=== PATIENT | male | born 1995 | race Two or more races ===

== ENCOUNTER 2017-03-07 14:51 | Emergency (ER) | payer BC ==
[2017-03-07] MEDS ORDERED: methylPREDNISolone Sodium Succinate 125 MG/2 ML SDV IM ONE (14:59)
[2017-03-07] MEDS ORDERED: Albuterol/Ipratropium 3.0-0.5 MG/3 ML Neb Soln NEB ONE (14:59)
--- NOTE | 2017-03-07 15:00 | EDM.PDOC ---
ED HPI GENERAL MEDICAL PROBLEM - General Chief Complaint: Respiratory Problem Stated Complaint: [id number] ASTHMA Time Seen by Provider: 03/07/17 14:59 Source of Information: Reports: Patient History Limitations: Reports: No Limitations - History of Present Illness INITIAL COMMENTS - FREE TEXT/NARRATIVE: 21 yo Male c/o SOB w/ Wheezing X 30mins when moving furniture Onset: Today Onset Date: 03/07/17 Onset Time: 14:00 Duration: Minutes: Location: Reports: Chest Quality: Reports: Same as Previous Episode Severity: Moderate Improves with: Reports: None Worsens with: Reports: None Context: Reports: Activity - Related Data Allergies Allergy/AdvReac Type Severity Reaction Status Date / Time basil Allergy Hives Verified 09/09/16 21:19 mushroom Allergy Hives Verified 09/09/16 21:19 peanuts Allergy Anaphylactic Uncoded 09/09/16 21:18 Shock Home Meds: Home Meds Albuterol Sulfate [Proair Hfa] 8.5 gm IH DAILY 09/03/16 [History] Albuterol Sulfate [Proair Hfa] 2 puff IH Q6HR #1 hfa.aer.ad 11/18/16 [Rx] Inhaler, Assist Devices [Space Chamber Plus] 1 each MC ASDIRECTED #1 spacer 11/27 [Rx] methylPREDNISolone [Medrol] 4 mg PO DAILY #21 tab.ds.pk 11/18/16 [Rx] ALPRAZolam [ALPRAZolam] 2 mg PO ASDIRECTED 03/07/17 [History] Beclomethasone Dipropionate [Qvar] 1 inh INH DAILY 03/07/17 [History] Sertraline HCl [Sertraline HCl] 50 mg PO DAILY 03/07/17 [History] Past Medical History HEENT History: Reports: None Cardiovascular History: Reports: None Respiratory History: Reports: Asthma Gastrointestinal History: Reports: None Genitourinary History: Reports: None Musculoskeletal History: Reports: None Neurological History: Reports: None Psychiatric History: Reports: Anxiety Endocrine/Metabolic History: Reports: None Hematologic History: Reports: None Immunologic History: Reports: None Oncologic (Cancer) History: Reports: None Dermatologic History: Reports: None - Infectious Disease History Infectious Disease History: Reports: None - Past Surgical History Musculoskeletal Surgical History: Reports: Shoulder Surgery Social & Family History - Family History Family Medical History: Noncontributory - Tobacco Use Smoking Status *Q: Never Smoker Used Tobacco, but Quit: No Second Hand Smoke Exposure: No - Caffeine Use Caffeine Use: Reports: None - Recreational Drug Use Recreational Drug Use: No ED ROS GENERAL - Review of Systems Review Of Systems: See Below Constitutional: Reports: No Symptoms HEENT: Reports: No Symptoms Respiratory: Reports: Shortness of Breath, Wheezing Cardiovascular: Reports: No Symptoms Endocrine: Reports: No Symptoms GI/Abdominal: Reports: No Symptoms : Reports: No Symptoms Musculoskeletal: Reports: No Symptoms Skin: Reports: No Symptoms Neurological: Reports: No Symptoms Psychiatric: Reports: No Symptoms Hematologic/Lymphatic: Reports: No Symptoms Immunologic: Reports: No Symptoms ED EXAM, GENERAL - Physical Exam Exam: See Below Exam Limited By: No Limitations General Appearance: Alert, WD/WN, No Apparent Distress Eye Exam: Bilateral Eye: EOMI, PERRL Ears: Normal External Exam Nose: Normal Inspection Throat/Mouth: Normal Inspection Head: Atraumatic Neck: Normal Inspection, Supple Respiratory/Chest: Wheezing, Prolonged Expiration Cardiovascular: Normal Peripheral Pulses, Regular Rate, Rhythm Peripheral Pulses: 2+: Radial (L), Radial (R) GI/Abdominal: Normal Bowel Sounds, Soft Back Exam: Normal Inspection Extremities: Normal Inspection, Normal Range of Motion Neurological: Alert, Oriented, CN II-XII Intact, Normal Cognition Psychiatric: Normal Affect Skin Exam: Warm, Dry, Intact Lymphatic: No Adenopathy Course - Vital Signs Last Recorded V/S: Last Vital Signs Temp Pulse 99 03/07/17 15:09 Resp BP Pulse Ox - Orders/Labs/Meds Orders: Active Orders 24 hr Category Date Time Status RT Aerosol Therapy [RC] ASDIRECTED Care 03/07/17 15:00 Active Chest 2V [CR] Urgent Exams 03/07/17 15:01 Taken Meds: Medications Discontinued Medications Generic Name Dose Route Start Last Admin Trade Name Freq PRN Reason Stop Dose Admin Albuterol/Ipratropium 3 ml 03/07/17 14:59 03/07/17 15:08 Duoneb 3.0-0.5 Mg/3 Ml NEB 03/07/17 15:00 3 ml ONETIME ONE Administration Methylprednisolone Sodium Succinate 125 mg 03/07/17 14:59 Solu-Medrol IM 03/07/17 15:00 ONETIME ONE Departure - Departure Time of Disposition: 15:44 Disposition: Home, Self-Care 01 Condition: Good Clinical Impression: Acute asthma - Discharge Information Instructions: Asthma, Adult Forms: ED Department Discharge Additional Instructions: Increase intake of fluids Take your medications as directed only: CARLITOS CAPPS use as directed # 1 F/U w/ PCP - My Orders Last 24 Hours: My Active Orders 03/07/17 15:00 RT Aerosol Therapy [RC] ASDIRECTED 03/07/17 15:01 Chest 2V [CR] Urgent - Assessment/Plan Last 24 Hours: My Active Orders 03/07/17 15:00 RT Aerosol Therapy [RC] ASDIRECTED 03/07/17 15:01 Chest 2V [CR] Urgent
== END 2017-03-07 16:31 | disposition home or self-care (01) ==
LOC: DL.ED 14:51
DX: J45.909 Unspecified asthma, uncomplicated (principal); Z91.010 Allergy to peanuts; Z79.899 Other long term (current) drug therapy
CPT/HCPCS: 71020; 94640; 96372; 99285

== ENCOUNTER 2017-04-01 01:59 | Emergency (ER) | payer BC ==
[2017-04-01] MEDS ORDERED: Albuterol/Ipratropium 3.0-0.5 MG/3 ML Neb Soln ONE (02:10)
[2017-04-01] MEDS ORDERED: Albuterol/Ipratropium 3.0-0.5 MG/3 ML Neb Soln NEB ONE (02:10)
[2017-04-01] MEDS ORDERED: methylPREDNISolone Sodium Succinate 125 MG/2 ML SDV IVPUSH ONE (02:11)
--- NOTE | 2017-04-01 02:13 | EDM.PDOC ---
ED HPI GENERAL MEDICAL PROBLEM - General Chief Complaint: Asthma Stated Complaint: ATHSMA ATTACK [id number] Time Seen by Provider: 04/01/17 02:12 Source of Information: Reports: Patient History Limitations: Reports: No Limitations - History of Present Illness INITIAL COMMENTS - FREE TEXT/NARRATIVE: Woke at midnight with wheezing and cough. Hx "bad asthma". Tried albuterol inhaler without improvement. Previously on Salmuterol and albuterol with improved control. Is not from [facility] and reports he has been referred to pulmonolgy and cant get in until April. only in area for 1-2 more weeks then back to [place]. Treatments [employer]: Reports: Other (see below) Other Treatments [employer]: albuterol - Related Data Allergies Allergy/AdvReac Type Severity Reaction Status Date / Time basil Allergy Hives Verified 04/01/17 02:09 mushroom Allergy Hives Verified 04/01/17 02:09 peanuts Allergy Anaphylactic Uncoded 04/01/17 02:09 Shock Home Meds: Home Meds Albuterol Sulfate [Proair Hfa] 8.5 gm IH DAILY 09/03/16 [History] Albuterol Sulfate [Proair Hfa] 2 puff IH Q6HR #1 hfa.aer.ad 11/18/16 [Rx] Inhaler, Assist Devices [Space Chamber Plus] 1 each MC ASDIRECTED #1 spacer 11/27 [Rx] methylPREDNISolone [Medrol] 4 mg PO DAILY #21 tab.ds.pk 11/18/16 [Rx] ALPRAZolam [ALPRAZolam] 1 mg PO ASDIRECTED 03/07/17 [History] Beclomethasone Dipropionate [Qvar] 1 inh INH DAILY 03/07/17 [History] Sertraline HCl [Sertraline HCl] 50 mg PO DAILY 03/07/17 [History] Past Medical History HEENT History: Reports: None Cardiovascular History: Reports: None Respiratory History: Reports: Asthma Gastrointestinal History: Reports: None Genitourinary History: Reports: None Musculoskeletal History: Reports: None Neurological History: Reports: None Psychiatric History: Reports: Anxiety Endocrine/Metabolic History: Reports: None Hematologic History: Reports: None Immunologic History: Reports: None Oncologic (Cancer) History: Reports: None Dermatologic History: Reports: None - Infectious Disease History Infectious Disease History: Reports: None - Past Surgical History Musculoskeletal Surgical History: Reports: Shoulder Surgery Social & Family History - Family History Family Medical History: Noncontributory - Tobacco Use Smoking Status *Q: Never Smoker Used Tobacco, but Quit: No Second Hand Smoke Exposure: No - Caffeine Use Caffeine Use: Reports: None - Recreational Drug Use Recreational Drug Use: No ED ROS GENERAL - Review of Systems Review Of Systems: See Below Constitutional: Reports: No Symptoms HEENT: Reports: No Symptoms Respiratory: Reports: Shortness of Breath, Wheezing, Cough Cardiovascular: Reports: No Symptoms Endocrine: Reports: No Symptoms GI/Abdominal: Reports: No Symptoms Musculoskeletal: Reports: No Symptoms Neurological: Reports: No Symptoms ED EXAM, GENERAL - Physical Exam Exam: See Below Exam Limited By: Language Barrier General Appearance: Alert, Mild Distress Eye Exam: Bilateral Eye: EOMI Ears: Normal External Exam Nose: Normal Inspection Throat/Mouth: Normal Inspection Head: Atraumatic, Normocephalic Neck: Normal Inspection Respiratory/Chest: Respiratory Distress (mild), Wheezing Cardiovascular: Normal Peripheral Pulses, Regular Rate, Rhythm Back Exam: Full Range of Motion Extremities: Normal Inspection Neurological: Alert, Oriented, Normal Cognition Psychiatric: Normal Affect Skin Exam: Warm, Dry, Intact, Tattoo(s) Course - Vital Signs Last Recorded V/S: Last Vital Signs Temp 98.7 F 04/01/17 02:55 Pulse 66 04/01/17 02:55 Resp 16 04/01/17 02:55 BP 121/85 04/01/17 02:55 Pulse Ox 99 04/01/17 02:55 - Orders/Labs/Meds Orders: Active Orders 24 hr Category Date Time Status RT Aerosol Therapy [RC] ASDIRECTED Care 04/01/17 02:10 Active CXR [Chest 1V Frontal] [CR] Urgent Exams 04/01/17 02:21 Taken Meds: Medications Discontinued Medications Generic Name Dose Route Start Last Admin Trade Name Freq PRN Reason Stop Dose Admin Albuterol/Ipratropium 3 ml 04/01/17 02:10 04/01/17 02:12 Duoneb 3.0-0.5 Mg/3 Ml NEB 04/01/17 02:11 3 ml ONETIME ONE Administration Albuterol/Ipratropium Confirm 04/01/17 02:10 04/01/17 02:13 Duoneb 3.0-0.5 Mg/3 Ml Administered 04/01/17 02:11 Not Given Dose 3 ml .ROUTE .STK-MED ONE Methylprednisolone Sodium Succinate 125 mg 04/01/17 02:11 04/01/17 02:21 Solu-Medrol IVPUSH 04/01/17 02:12 125 mg ONETIME ONE Administration - Radiology Interpretation Free Text/Narrative:: CXR hyperexpansion consistent with asthma - Re-Assessments/Exams Free Text/Narrative Re-Assessment/Exam: 04/01/17 03:52 Improved lungs sounds post neb. Wheezing mostly resloved. Patient stating he feels he is at his normal state. Departure - Departure Time of Disposition: 02:55 Disposition: Home, Self-Care 01 Condition: Good Clinical Impression: Asthma attack Qualifiers: Asthma severity: moderate Asthma persistence: persistent Qualified Code(s): J45.41 - Moderate persistent asthma with (acute) exacerbation - Discharge Information Instructions: Asthma, Adult, [id number] Referrals: PCP,None [Primary Care Provider] - Forms: ED Department Discharge Additional Instructions: salmeterol one puff twice daily prednisone 20mg daily x 5 days albuterol inhaler 2 puffs every 4 hours as needed clinic follow up as needed - My Orders Last 24 Hours: My Active Orders 04/01/17 02:10 RT Aerosol Therapy [RC] ASDIRECTED 04/01/17 02:21 CXR [Chest 1V Frontal] [CR] Urgent - Assessment/Plan Last 24 Hours: My Active Orders 04/01/17 02:10 RT Aerosol Therapy [RC] ASDIRECTED 04/01/17 02:21 CXR [Chest 1V Frontal] [CR] Urgent
[2017-04-01 02:56] VITALS: BP 121/85
== END 2017-04-01 02:57 | disposition home or self-care (01) ==
LOC: DL.ED 01:59
DX: J45.41 Moderate persistent asthma with (acute) exacerbation (principal); Z91.010 Allergy to peanuts; Z79.899 Other long term (current) drug therapy
CPT/HCPCS: 71010; 94640; 96374; 99285; J2930

== ENCOUNTER 2017-04-19 07:24 | Emergency (ER) | payer BC ==
[2017-04-19] MEDS ORDERED: Albuterol/Ipratropium 3.0-0.5 MG/3 ML Neb Soln ONE (07:29)
[2017-04-19] MEDS ORDERED: Albuterol/Ipratropium 3.0-0.5 MG/3 ML Neb Soln NEB ONE (07:31)
[2017-04-19] MEDS ORDERED: predniSONE 20 MG Tab PO ONE (07:31)
[2017-04-19] MEDS ORDERED: Budesonide 0.5 MG/2 ML Neb Susp NEB ONE (07:32)
--- NOTE | 2017-04-19 07:47 | EDM.PDOC ---
ED HPI GENERAL MEDICAL PROBLEM - General Stated Complaint: ASTHMA ATTACK Time Seen by Provider: 04/19/17 07:30 Source of Information: Reports: Patient History Limitations: Reports: No Limitations - History of Present Illness INITIAL COMMENTS - FREE TEXT/NARRATIVE: Patient comes emergency department today with family with concerns of an asthma attack. Patient woke this morning approximately 7:00 and is struggling quite heavily with an asthma exacerbation. He does not take any controller medications for his asthma and only has albuterol which did not resolve his symptomatology this morning. He has not had any recent fever or chills. He just recently got over the flu he reports. Does not smoke. His last time on steroids was approximately 1 month ago when he was seen in the emergency department at that time as well. He typically is on a inhaler twice daily possibly Qvar although he can not afford it until he gets back to [place] in the next 3 days. - Related Data Allergies Allergy/AdvReac Type Severity Reaction Status Date / Time basil Allergy Hives Verified 04/01/17 02:09 mushroom Allergy Hives Verified 04/01/17 02:09 peanuts Allergy Anaphylactic Uncoded 04/01/17 02:09 Shock Home Meds: Home Meds Inhaler, Assist Devices [Space Chamber Plus] 1 each MC ASDIRECTED #1 spacer 11/27 [Rx] methylPREDNISolone [Medrol] 4 mg PO DAILY #21 tab.ds.pk 11/18/16 [Rx] ALPRAZolam [ALPRAZolam] 1 mg PO ASDIRECTED 03/07/17 [History] Beclomethasone Dipropionate [Qvar] 1 inh INH DAILY 03/07/17 [History] Sertraline HCl [Sertraline HCl] 50 mg PO DAILY 03/07/17 [History] Albuterol Sulfate [Proair Hfa] 2 puff IH Q4H 04/19/17 [History] Past Medical History HEENT History: Reports: None Cardiovascular History: Reports: None Respiratory History: Reports: Asthma Gastrointestinal History: Reports: None Genitourinary History: Reports: None Musculoskeletal History: Reports: None Neurological History: Reports: None Psychiatric History: Reports: Anxiety Endocrine/Metabolic History: Reports: None Hematologic History: Reports: None Immunologic History: Reports: None Oncologic (Cancer) History: Reports: None Dermatologic History: Reports: None - Infectious Disease History Infectious Disease History: Reports: None - Past Surgical History Musculoskeletal Surgical History: Reports: Shoulder Surgery Social & Family History - Family History Family Medical History: Noncontributory - Tobacco Use Smoking Status *Q: Never Smoker Used Tobacco, but Quit: No Second Hand Smoke Exposure: No - Caffeine Use Caffeine Use: Reports: None - Recreational Drug Use Recreational Drug Use: No ED ROS GENERAL - Review of Systems Review Of Systems: ROS reveals no pertinent complaints other than HPI. ED EXAM, GENERAL - Physical Exam Exam: See Below Free Text/Narrative:: Patient is only able to speak in 4-5 word sentences due to shortness of breath. He is in mild to moderate respiratory distress upon arrival. Mild nasal flaring without any costal retractions. Exam Limited By: No Limitations General Appearance: Alert, Mild Distress Ears: Normal External Exam, Normal Canal Ear Exam: Bilateral Ear: Auricle Normal, Canal Normal, TM normal Nose: Normal Inspection, Normal Mucosa, No Blood Throat/Mouth: Normal Inspection, Normal Lips, Normal Teeth, Normal Oropharynx, Normal Voice Head: Atraumatic, Normocephalic Neck: Normal Inspection, Supple, Non-Tender, Full Range of Motion Respiratory/Chest: No Accessory Muscle Use, Chest Non-Tender, Respiratory Distress (Mild), Decreased Breath Sounds (Throughout), Wheezing (Throughout bilaterally). No: Crackles, Rales, Rhonchi, Stridor Cardiovascular: Normal Peripheral Pulses, Regular Rate, Rhythm, No Edema, No Gallop, No Murmur, No Rub Peripheral Pulses: 2+: Carotid (L), Carotid (R), Brachial (L), Brachial (R) GI/Abdominal: Normal Bowel Sounds, Soft (Male) Exam: Deferred Rectal (Males) Exam: Deferred Back Exam: Normal Inspection Extremities: Normal Inspection, Normal Range of Motion, Non-Tender, Normal Capillary Refill Neurological: Alert Psychiatric: Normal Affect Skin Exam: Warm, Dry, Intact, Normal Color Lymphatic: No Adenopathy Course - Vital Signs Last Recorded V/S: Last Vital Signs Temp 36.4 C 04/19/17 07:26 Pulse 93 04/19/17 07:26 Resp 24 H 04/19/17 07:26 BP 104/85 04/19/17 07:26 Pulse Ox 97 04/19/17 07:26 - Orders/Labs/Meds Orders: Active Orders 24 hr Category Date Time Status RT Aerosol Therapy [RC] ASDIRECTED Care 04/19/17 07:31 Active RT Aerosol Therapy [RC] ASDIRECTED Care 04/19/17 07:32 Active Meds: Medications Discontinued Medications Generic Name Dose Route Start Last Admin Trade Name Azalea PRN Reason Stop Dose Admin Albuterol/Ipratropium 3 ml 04/19/17 07:31 04/19/17 07:32 Duoneb 3.0-0.5 Mg/3 Ml NEB 04/19/17 07:32 3 ml ONETIME ONE Administration Albuterol/Ipratropium Confirm 04/19/17 07:29 04/19/17 07:35 Duoneb 3.0-0.5 Mg/3 Ml Administered 04/19/17 07:30 Not Given Dose 3 ml .ROUTE .STK-MED ONE Budesonide 0.5 mg 04/19/17 07:32 04/19/17 07:34 Pulmicort NEB 04/19/17 07:33 0.5 mg ONETIME ONE Administration Prednisone 60 mg 04/19/17 07:31 04/19/17 07:57 Prednisone PO 04/19/17 07:32 60 mg ONETIME ONE Administration - Re-Assessments/Exams Free Text/Narrative Re-Assessment/Exam: 04/19/17 07:49 Prednisone 60 mg by mouth. DuoNeb Budesonide 0.5 mg nebulizer. 04/19/17 08:13 Complete resolution of the shortness of breath as well as wheezing. Lung sounds no wheezing bilaterally. I did talk to the patient about the importance as asthma is a chronic inflammatory process that he is on a daily inhaled corticosteroid which is primary therapy for the prevention of recurrent asthma attacks and this is most likely why over the past couple of months he has struggled with recurrent asthma attacks. I will start him on fluticasone twice daily. Follow-up with primary care in [place] when he gets out there. Sooner if worse. 04/19/17 08:14 Departure - Departure Time of Disposition: 08:09 Disposition: Home, Self-Care 01 Clinical Impression: Asthma attack Qualifiers: Asthma severity: mild Asthma persistence: unspecified Qualified Code(s): J45.901 - Unspecified asthma with (acute) exacerbation - Discharge Information Instructions: Asthma, Adult, Llyl-ro-[id number], How to Use an Inhaler, [id number] Additional Instructions: Albuterol as needed every 4hours as needed for acute symptoms. Prednisone 60mg a day for the next 5 days. RX given to the patient. First dose given in the ED. Start tomorrow. Fluticasone inhaler for controll of asthma, 2 puffs twice daily. RX given to the patient. Return to the ED if new or worsening symptoms. Follow up with primary care provider in the next 4-6 days if not improving sooner if worse. - My Orders Last 24 Hours: My Active Orders 04/19/17 07:31 RT Aerosol Therapy [RC] ASDIRECTED 04/19/17 07:32 RT Aerosol Therapy [RC] ASDIRECTED - Assessment/Plan Last 24 Hours: My Active Orders 04/19/17 07:31 RT Aerosol Therapy [RC] ASDIRECTED 04/19/17 07:32 RT Aerosol Therapy [RC] ASDIRECTED Assessment:: Acute mild asthma attack No ICS controller therapy for chronic condition. Plan: Albuterol as needed every 4hours as needed for acute symptoms. Prednisone 60mg a day for the next 5 days. RX given to the patient. First dose given in the ED. Start tomorrow. Fluticasone inhaler for controll of asthma, 2 puffs twice daily. RX given to the patient. Return to the ED if new or worsening symptoms. Follow up with primary care provider in the next 4-6 days if not improving sooner if worse.
[2017-04-19 08:09] VITALS: BP 104/85
== END 2017-04-19 08:19 | disposition home or self-care (01) ==
LOC: DL.ED 07:24
DX: J45.901 Unspecified asthma with (acute) exacerbation (principal); Z91.010 Allergy to peanuts; Z79.899 Other long term (current) drug therapy
CPT/HCPCS: 94640; 99285; A9270

== ENCOUNTER 2017-07-19 05:49 | Emergency (ER) | payer BC ==
[2017-07-19 05:58] VITALS: BP 136/80
[2017-07-19] MEDS ORDERED: Albuterol/Ipratropium 3.0-0.5 MG/3 ML Neb Soln NEB ONE (06:04)
[2017-07-19] MEDS ORDERED: LORazepam 2 MG/ML Syringe IM ONE (06:28)
[2017-07-19] MEDS ORDERED: methylPREDNISolone Sodium Succinate 125 MG/2 ML SDV IM ONE (06:28)
--- NOTE | 2017-07-19 06:33 | EDM.PDOC ---
ED HPI GENERAL MEDICAL PROBLEM - General Chief Complaint: Respiratory Problem Stated Complaint: ASTHMA ATTACK [id number] Time Seen by Provider: 07/19/17 06:10 Source of Information: Reports: Patient, RN, RN Notes Reviewed History Limitations: Reports: No Limitations - History of Present Illness INITIAL COMMENTS - FREE TEXT/NARRATIVE: Pt presents to the ER with c/o SOB and wheezing. He states he has been staying in a hotel until he gets moved into his house. Pt states he has been becoming more wheezy and sob over the past week. He states as his sob increases, his anxiety increases as well. Patient states he has been using his Proventil quite often. Onset: Gradual Mid-Sternal Chest Pain Score (Numeric/FACES): 4 - Related Data Allergies Allergy/AdvReac Type Severity Reaction Status Date / Time basil Allergy Hives Verified 07/19/17 05:58 mushroom Allergy Hives Verified 07/19/17 05:58 peanuts Allergy Anaphylactic Uncoded 07/19/17 05:58 Shock Home Meds: Home Meds Albuterol Sulfate [Proair Hfa] 2 puff IH Q4H PRN 04/19/17 [History] Past Medical History HEENT History: Reports: None Cardiovascular History: Reports: Hypertension Respiratory History: Reports: Asthma Gastrointestinal History: Reports: None Genitourinary History: Reports: None Musculoskeletal History: Reports: None Neurological History: Reports: Migraines Psychiatric History: Reports: Anxiety Endocrine/Metabolic History: Reports: None Hematologic History: Reports: None Immunologic History: Reports: None Oncologic (Cancer) History: Reports: None Dermatologic History: Reports: None - Infectious Disease History Infectious Disease History: Reports: None - Past Surgical History Musculoskeletal Surgical History: Reports: Shoulder Surgery Social & Family History - Family History Family Medical History: Noncontributory - Tobacco Use Smoking Status *Q: Never Smoker Used Tobacco, but Quit: No Second Hand Smoke Exposure: No - Caffeine Use Caffeine Use: Reports: None - Recreational Drug Use Recreational Drug Use: No ED ROS GENERAL - Review of Systems Review Of Systems: ROS reveals no pertinent complaints other than HPI. ED EXAM, GENERAL - Physical Exam Exam: See Below Exam Limited By: No Limitations General Appearance: Alert, WD/WN, Mild Distress Eye Exam: Bilateral Eye: EOMI, Normal Inspection Ears: Normal External Exam, Hearing Grossly Normal Nose: Normal Inspection Throat/Mouth: Normal Inspection, Normal Voice, No Airway Compromise Head: Atraumatic, Normocephalic Neck: Normal Inspection, Supple, Non-Tender, Full Range of Motion Respiratory/Chest: No Respiratory Distress, Lungs Clear (after nebulizer), Normal Breath Sounds, No Accessory Muscle Use, Chest Non-Tender, Wheezing ( throughout prior to nebulizer) Cardiovascular: Normal Peripheral Pulses, Regular Rate, Rhythm, No Edema, No Gallop, No JVD, No Murmur, No Rub Peripheral Pulses: 2+: Radial (L), Radial (R) GI/Abdominal: Normal Bowel Sounds, Soft, Non-Tender, No Organomegaly, No Distention, No Abnormal Bruit, No Mass (Male) Exam: Deferred Rectal (Males) Exam: Deferred Back Exam: Normal Inspection, Full Range of Motion, NT Extremities: Normal Inspection, Normal Range of Motion, Non-Tender, Normal Capillary Refill, No Pedal Edema Neurological: Alert, Oriented, CN II-XII Intact, Normal Cognition, Normal Gait, Normal Reflexes, No Motor/Sensory Deficits Psychiatric: Anxious Skin Exam: Warm, Dry, Intact, Normal Color, No Rash Lymphatic: No Adenopathy Course - Vital Signs Last Recorded V/S: Last Vital Signs Temp 99 F 07/19/17 05:54 Pulse 89 07/19/17 05:54 Resp 18 07/19/17 05:54 BP 136/80 07/19/17 05:54 Pulse Ox 96 07/19/17 05:54 - Orders/Labs/Meds Orders: Active Orders 24 hr Category Date Time Status RT Aerosol Therapy [RC] ASDIRECTED Care 07/19/17 06:04 Active Meds: Medications Discontinued Medications Generic Name Dose Route Start Last Admin Trade Name Neymarq PRN Reason Stop Dose Admin Albuterol/Ipratropium 3 ml 07/19/17 06:04 07/19/17 06:07 Duoneb 3.0-0.5 Mg/3 Ml NEB 07/19/17 06:05 3 ml ONETIME ONE Administration Lorazepam 1 mg 07/19/17 06:28 07/19/17 06:33 Ativan IM 07/19/17 06:29 1 mg ONETIME ONE Administration Methylprednisolone Sodium Succinate 125 mg 07/19/17 06:28 07/19/17 06:34 Solu-Medrol IM 07/19/17 06:29 125 mg ONETIME ONE Administration Departure - Departure Time of Disposition: 06:31 Disposition: Home, Self-Care 01 Condition: Fair Clinical Impression: Asthma attack Qualifiers: Asthma severity: mild Asthma persistence: unspecified Qualified Code(s): J45.901 - Unspecified asthma with (acute) exacerbation - Discharge Information Instructions: Upper Respiratory Infection, Adult, [id number], Asthma, Adult, Cyeu-in-Wutd, Asthma, Acute Bronchospasm Forms: ED Department Discharge Additional Instructions: Use a spacer on your inhaler RX: Medrol dose pack Follow up with your primary care facility. - My Orders Last 24 Hours: My Active Orders 07/19/17 06:04 RT Aerosol Therapy [RC] ASDIRECTED - Assessment/Plan Last 24 Hours: My Active Orders 07/19/17 06:04 RT Aerosol Therapy [RC] ASDIRECTED
== END 2017-07-19 06:54 | disposition home or self-care (01) ==
LOC: DL.ED 05:49
DX: J45.901 Unspecified asthma with (acute) exacerbation (principal); I10 Essential (primary) hypertension; Z91.018 Allergy to other foods; Z91.010 Allergy to peanuts
CPT/HCPCS: 96372; 99284; J2060; J2930